=== PATIENT | male | born 1980 | race African-American/Black ===

== ENCOUNTER 2018-03-09 15:31 | Emergency (ER) | payer OTHER ==
[~2018-03-09] VITALS: Ht 172.7 cm; Wt 81.6 kg
[2018-03-09 15:40] VITALS: TEMP 98.1
[2018-03-09 17:15] LABS: PLATELET COUNT 302 K/uL (142-355)
[2018-03-09 18:06] VITALS: BP 138/74
== END 2018-03-09 18:05 | disposition home or self-care (01) ==
LOC: ED 15:31
DX: K52.89 Other specified noninfective gastroenteritis and colitis (principal)
CPT/HCPCS: 36415; 74022; 80053; 81000; 82150; 83690; 85027; 99283